=== PATIENT | female | born 1950 | race Caucasian/White ===

== ENCOUNTER → 2017-12-06 | Outpatient (CLI) | payer MEDICARE, OTHER | END | disposition home or self-care (01) | LOC: KCIC MAMMO 14:10 | DX: Z12.31 Encounter for screening mammogram for malignant neoplasm of breast (principal) | CPT/HCPCS: 77067 ==

== ENCOUNTER → 2018-05-25 | Outpatient (CLI) | payer MEDICARE, OTHER ==
--- NOTE | 2018-05-25 16:05 | KCIC ---
Right lower extremity venous doppler ultrasound History: Right leg swelling, pain Comparison: None Findings: Multiple grayscale, color, and duplex spectral analysis sonographic images were acquired of the right lower extremity veins to evaluate for the presence of DVT. There is normal phasicity. Normal compression, color-flow, and augmentation is demonstrated from the right common femoral to the popliteal veins. There is normal color flow of the proximal greater saphenous and profunda femoris veins. There is normal color flow of segments of the calf veins. Impression: 1. There is no evidence of deep venous thrombosis from the right common femoral to popliteal veins. Electronically signed by: Kermit Tariq MD (05/25/2018 4:01 PM) [id number]
--- NOTE | 2018-05-25 16:07 | KCIC ---
Right lower extremity arterial ultrasound History: Right leg swelling and pain Findings: Multiple grayscale, color, and duplex spectral analysis sonographic images were acquired of the right lower extremity arteries. There is minimal plaque of the right lower extremity arteries, triphasic waveforms of the right lower extremity arteries. No significant focal stenosis or vessel occlusion is demonstrated. Velocities in cm/sec: Common femoral artery 120 Profunda femoris artery 82 Proximal SFA 106 Mid SFA 104 Distal SFA 102 Popliteal artery 73 Anterior tibial artery 27 Dorsalis pedis artery 86 Posterior tibial artery 90 Impression: 1. No significant focal stenosis is identified. There is mild plaque. Electronically signed by: Kermit Tariq MD (05/25/2018 4:03 PM) [id number]
== END | disposition home or self-care (01) ==
LOC: KCIC US 14:10
PROVIDERS: ATTEND Family Medicine
DX: I70.291 Other atherosclerosis of native arteries of extremities, right leg (principal)
CPT/HCPCS: 93926; 93971

== ENCOUNTER → 2019-07-07 | Outpatient (CLI) | payer MEDICARE, OTHER ==
[~2019-07-07] MED LIST: ATEN25TA PO; CONTRAST GIVEN. MC PRN; IOHEXOL 300 MG/ML 100ML VIAL. IV ONE; LISI-338 PO
--- NOTE | 2019-07-07 16:52 | KCIC ---
CT scan of the neck with contrast 07/07/2019 CLINICAL HISTORY: Left-sided neck mass. TECHNIQUE: After the intravenous administration of 95 cc of Omnipaque 300, contiguous, 3 mm axial sections were obtained through the neck. One or more of the following individualized dose reduction techniques were utilized for this study: 1. Automated exposure control. 2. Adjustment of the mA and/or kV according to patient size. 3. Use of iterative reconstruction technique. FINDINGS: The mucosal pattern of the nasal pharynx, oral pharynx, hypopharynx and larynx is within normal limits. The thyroid gland is heterogeneous. Several rounded low-attenuation lesions are seen involving both lobes of the thyroid gland which measure 5 mm to 1.1 cm in size. They may represent colloid cysts. The common carotid arteries are tortuous bilaterally, left greater than right. This extrinsically compress the posterior hypopharynx, left greater than right at the level of the carotid bifurcations. A complex somewhat oval-shaped mass is seen within the left neck lateral to the body of the mandible. This measures 8.4 x 4.6 x 6.2 cm in AP, transverse and craniocaudal dimensions. It appears to involve the anterior aspect of the left parotid gland and may involve the left submandibular gland. It is concerning for a neoplastic process. A prominent level 1 lymph node is seen medial and anterior to this mass which measures 1.3 cm in size. Enlarged left level 2/level 3 lymph nodes are seen which measure 1.9 and 2.2 cm in greatest diameter. The right parotid gland and right submandibular gland are within normal limits. No additional cervical lymphadenopathy is seen. Mild atherosclerotic calcifications is seen in the region carotid bifurcations. Degenerative changes are seen involving the uncovertebral and facet joints throughout the cervical disc spaces. IMPRESSION: 8.4 cm complex mass is seen within the left neck lateral to the left aspect of the mandible consistent with a neoplastic process as discussed above. This corresponds to the patient's palpable abnormality. Electronically signed by: Lasha Santana MD (07/07/2019 4:50 PM) [id number]
== END | disposition home or self-care (01) ==
LOC: KCIC CT 09:53
PROVIDERS: ATTEND Family Medicine
DX: I65.23 Occlusion and stenosis of bilateral carotid arteries (principal); I77.1 Stricture of artery; R22.1 Localized swelling, mass and lump, neck; I10 Essential (primary) hypertension
CPT/HCPCS: 70491; 82565; Q9967